=== PATIENT | female | born 1950 | race Caucasian/White ===

== ENCOUNTER → 2020-01-26 | Outpatient (CLI) | payer MEDICARE | LOC: EDBD 05:08 → LABNPT 05:08 | PROVIDERS: ATTEND Emergency Medicine | DX: Z01.812 Encounter for preprocedural laboratory examination (principal); Z20.828 Contact with and (suspected) exposure to other viral communicable diseases | CPT/HCPCS: 87635 ==

== ENCOUNTER → 2021-02-17 | Outpatient (CLI) | payer MEDICARE | LOC: CARD 08:30 | PROVIDERS: ATTEND Internal Medicine Cardiovascular Disease | DX: I11.9 Hypertensive heart disease without heart failure (principal); I34.0 Nonrheumatic mitral (valve) insufficiency | CPT/HCPCS: 93306 ==